=== PATIENT | male | born 1965 | race Caucasian/White ===

== ENCOUNTER 2022-10-15 09:47 | Inpatient (IN) | payer OTHER ==
[2022-10-15] MEDS ORDERED: MAG HYDROX/AL HYDROX/SIMETH 30 ML UNIT-DOSE CUP PO PRN (10:13)
[2022-10-15] MEDS ORDERED: ONDANSETRON *ODT* 4 MG TABLET SL PRN (10:13)
[2022-10-15] MEDS ORDERED: POLYETHYLENE GLYCOL (HEALTHYLAX) 3350 17 GM PACKET PO PRN (10:13)
[2022-10-15] MEDS ORDERED: MAGNESIUM HYDROX 2400MG/30ML ORAL SUSPENSION 30 ML CUP PO PRN (10:13)
[2022-10-15] MEDS ORDERED: BENZONATATE 200 MG CAPSULE PO PRN (10:13)
[2022-10-15] MEDS ORDERED: DICYCLOMINE HCL 10 MG CAPSULE PO PRN (10:13)
[2022-10-15] MEDS ORDERED: ACETAMINOPHEN 325 MG TABLET (FP) PO PRN (10:13)
[2022-10-15] MEDS ORDERED: BENZOCAINE/MENTHOL (CHLORASEPTIC ) LOZENGE MM PRN (10:13)
[2022-10-15] MEDS ORDERED: NICOTINE 21 MG/24 HOURS TOPICAL PATCH TD PRN (10:13)
[2022-10-15] MEDS ORDERED: NALOXONE HCL (KLOXXADO) 8 MG SPRAY NS PRN (10:13)
[2022-10-15] MEDS ORDERED: guaiFENesin 600 MG TABLET.ER (FP) PO PRN (10:13)
[2022-10-15] MEDS ORDERED: IBUPROFEN 400 MG TABLET (FP) PO PRN (10:13)
[2022-10-15] MEDS ORDERED: LOPERAMIDE HCL 2 MG CAPSULE PO PRN (10:13)
[2022-10-15] MEDS ORDERED: NICOTINE POLACRILEX 4 MG GUM BUC PRN (10:13)
[2022-10-15] MEDS ORDERED: BISMUTH SUBSALICYLATE 262 MG/15 ML BTL PO PRN (10:13)
[2022-10-15] MEDS ORDERED: NALOXONE HCL 0.4 MG/ML VIAL IM PRN (10:13)
[2022-10-15 10:59] VITALS: BMI 25.8
[2022-10-15] MEDS ORDERED: methaDONE HCL 10 MG TABLET (FOR DETOX USE ONLY) PO ONE (11:30)
[2022-10-15] MEDS: cloNIDine HCL 0.1 MG TABLET PO PRN ×2 (12:07→21:47)
[2022-10-15 14:13] LABS: HEMATOCRIT 41.8 % (35.4-49); HEMOGLOBIN 13.9 GM/dL (11.7-16.9); MCH 29.3 pg (25.7-33.7); MCHC 33.3 g/dl (32.0-35.9); MEAN CELL VOLUME 87.9 fl (80-96); MEAN PLT VOLUME 7.3 fl (7.5-11.1); PLATELET COUNT 347 10^3/uL (134-434); RBC 4.76 M/mm3 (4.00-5.60); RDW 12.9 % (11.9-15.9); WHITE BLOOD COUNT 7.6 K/mm3 (4.0-10.0)
[2022-10-15 14:36] LABS: ALBUMIN 3.7 g/dl (3.4-5.0)
[2022-10-15 14:37] LABS: BLOOD UREA NITROGEN 17.9 mg/dL (7-18)
[2022-10-15 14:39] LABS: CREATININE 1.1 mg/dL (0.55-1.3)
[2022-10-15 14:44] LABS: BILIRUBIN,TOTAL 0.8 mg/dL (0.2-1)
[2022-10-15] MEDS: THIAMINE HCL 100 MG TABLET (FP) PO SCH (21:47)
[2022-10-15] MEDS: METHOCARBAMOL 500 MG TABLET PO PRN (21:47)
[2022-10-15] MEDS: hydrOXYzine PAMOATE 25 MG CAPSULE (FP) PO PRN (21:47)
[2022-10-15] MEDS: MELATONIN 5 MG TABLETS PO SCH (21:47)
[2022-10-15] MEDS: IBUPROFEN 600 MG TABLET (FP) PO PRN (21:47)
[2022-10-16] MEDS: cloNIDine HCL 0.1 MG TABLET PO PRN ×2 (07:12→22:18)
[2022-10-16] MEDS: hydrOXYzine PAMOATE 25 MG CAPSULE (FP) PO PRN ×2 (07:12→22:19)
[2022-10-16] MEDS: METHOCARBAMOL 500 MG TABLET PO PRN ×2 (07:12→22:18)
[2022-10-16] MEDS ORDERED: amLODIPine BESYLATE 10 MG TABLET (FP) PO ONE (09:39)
[2022-10-16] MEDS: PRENATAL VITAMINS W/ FOLIC ACID TABLET (FP) PO SCH (10:28)
[2022-10-16] MEDS: THIAMINE HCL 100 MG TABLET (FP) PO SCH (22:18)
[2022-10-16] MEDS: IBUPROFEN 600 MG TABLET (FP) PO PRN (22:18)
[2022-10-16] MEDS: MELATONIN 5 MG TABLETS PO SCH (22:18)
[2022-10-17] MEDS: METHOCARBAMOL 500 MG TABLET PO PRN ×2 (09:56→20:21)
[2022-10-17] MEDS: hydrOXYzine PAMOATE 25 MG CAPSULE (FP) PO PRN ×2 (09:56→20:21)
[2022-10-17] MEDS: PRENATAL VITAMINS W/ FOLIC ACID TABLET (FP) PO SCH (09:56)
[2022-10-17] MEDS ORDERED: methaDONE HCL 10 MG TABLET (FOR DETOX USE ONLY) PO ONE (10:00)
[2022-10-17] MEDS: NICOTINE 10 MG CARTRIDGE (INHALER) IH PRN (16:24)
[2022-10-17] MEDS: diazePAM 5 MG TABLET PO PRN (20:19)
[2022-10-17] MEDS: MELATONIN 5 MG TABLETS PO SCH (21:58)
[2022-10-17] MEDS: THIAMINE HCL 100 MG TABLET (FP) PO SCH (21:59)
[2022-10-18] MEDS: PRENATAL VITAMINS W/ FOLIC ACID TABLET (FP) PO SCH (10:30)
[2022-10-18] MEDS: NICOTINE 10 MG CARTRIDGE (INHALER) IH PRN (14:27)
[2022-10-18] MEDS: diazePAM 5 MG TABLET PO PRN (17:52)
[2022-10-18] MEDS: IBUPROFEN 600 MG TABLET (FP) PO PRN (22:48)
[2022-10-18] MEDS: THIAMINE HCL 100 MG TABLET (FP) PO SCH (22:48)
[2022-10-18] MEDS: MELATONIN 5 MG TABLETS PO SCH (22:48)
[2022-10-19] MEDS: diazePAM 5 MG TABLET PO PRN ×2 (09:05→22:47)
[2022-10-19] MEDS: PRENATAL VITAMINS W/ FOLIC ACID TABLET (FP) PO SCH (09:06)
[2022-10-19] MEDS: METHOCARBAMOL 500 MG TABLET PO PRN (09:06)
[2022-10-19] MEDS ORDERED: methaDONE HCL 10 MG TABLET (FOR DETOX USE ONLY) PO ONE (10:00)
[2022-10-19] MEDS: MELATONIN 5 MG TABLETS PO SCH (22:43)
[2022-10-19] MEDS: THIAMINE HCL 100 MG TABLET (FP) PO SCH (22:44)
[2022-10-19] MEDS: IBUPROFEN 600 MG TABLET (FP) PO PRN (22:46)
[2022-10-19] MEDS: hydrOXYzine PAMOATE 25 MG CAPSULE (FP) PO PRN (22:47)
[2022-10-20 09:25] VITALS: BP 111/68; PULSE 78; RESP 20; TEMP 98.6
[2022-10-20] MEDS: PRENATAL VITAMINS W/ FOLIC ACID TABLET (FP) PO SCH (10:44)
== END 2022-10-20 10:38 | disposition home or self-care (01) | DRG 773 ==
LOC: YASAS 09:47 → Y3N 11:08
PROVIDERS: ADMIT Allergy & Immunology; ATTEND Surgery
PROC: HZ2ZZZZ Detoxification Services for Substance Abuse Treatment (ICD-10-PCS; principal; 2022-10-15)
DX: F11.23 Opioid dependence with withdrawal (principal); F17.210 Nicotine dependence, cigarettes, uncomplicated; I10 Essential (primary) hypertension; F41.9 Anxiety disorder, unspecified; Z86.19 Personal history of other infectious and parasitic diseases; Z56.0 Unemployment, unspecified; Z59.00 Homelessness unspecified
CPT/HCPCS: 36415; 80053; 85027; 86780; 93005; 93010; C9803-CS; Q0162; U0003; U0005

== ENCOUNTER 2022-12-31 10:58 | Inpatient (IN) | payer OTHER ==
[2022-12-31 11:44] VITALS: BMI 28.0
[2022-12-31] MEDS ORDERED: IBUPROFEN 400 MG TABLET (FP) PO PRN (13:07)
[2022-12-31] MEDS ORDERED: guaiFENesin 600 MG TABLET.ER (FP) PO PRN (13:07)
[2022-12-31] MEDS ORDERED: MAGNESIUM HYDROX 2400MG/30ML ORAL SUSPENSION 30 ML CUP PO PRN (13:07)
[2022-12-31] MEDS ORDERED: NALOXONE HCL (KLOXXADO) 8 MG SPRAY NS PRN (13:07)
[2022-12-31] MEDS ORDERED: BUPRENORPHINE HCL 150 MCG, BUPRENORPHINE HCL 75 MCG BC ONE (13:07)
[2022-12-31] MEDS ORDERED: BENZOCAINE/MENTHOL (CHLORASEPTIC ) LOZENGE MM PRN (13:07)
[2022-12-31] MEDS ORDERED: ONDANSETRON *ODT* 4 MG TABLET SL PRN (13:07)
[2022-12-31] MEDS ORDERED: POLYETHYLENE GLYCOL (HEALTHYLAX) 3350 17 GM PACKET PO PRN (13:07)
[2022-12-31] MEDS ORDERED: MAG HYDROX/AL HYDROX/SIMETH 30 ML UNIT-DOSE CUP PO PRN (13:07)
[2022-12-31] MEDS ORDERED: BUPRENORPHINE HCL 150 MCG, BUPRENORPHINE HCL 75 MCG BC PRN (13:07)
[2022-12-31] MEDS ORDERED: NICOTINE 10 MG CARTRIDGE (INHALER) IH PRN (13:07)
[2022-12-31] MEDS ORDERED: ACETAMINOPHEN 325 MG TABLET (FP) PO PRN (13:07)
[2022-12-31] MEDS ORDERED: BENZONATATE 200 MG CAPSULE PO PRN (13:07)
[2022-12-31] MEDS ORDERED: DICYCLOMINE HCL 10 MG CAPSULE PO PRN (13:07)
[2022-12-31] MEDS ORDERED: NALOXONE HCL 0.4 MG/ML VIAL IM PRN (13:07)
[2022-12-31] MEDS ORDERED: LOPERAMIDE HCL 2 MG CAPSULE PO PRN (13:07)
[2022-12-31] MEDS ORDERED: cloNIDine HCL 0.1 MG TABLET PO ONE (13:07)
[2022-12-31] MEDS ORDERED: BISMUTH SUBSALICYLATE 262 MG/15 ML BTL PO PRN (13:07)
[2022-12-31] MEDS ORDERED: IBUPROFEN 600 MG TABLET (FP) PO PRN (13:07)
[2022-12-31] MEDS ORDERED: BUPRENORPHINE HCL 150 MCG FILM BC ONE (13:23)
[2022-12-31] MEDS ORDERED: NICOTINE 21 MG/24 HOURS TOPICAL PATCH ONE (13:23)
[2022-12-31] MEDS ORDERED: BUPRENORPHINE HCL 75 MCG FILM BC ONE (13:24)
[2022-12-31] MEDS ORDERED: cloNIDine HCL 0.1 MG TABLET ONE (13:24)
[2022-12-31] MEDS ORDERED: PRENATAL VITAMINS W/ FOLIC ACID TABLET (FP) PO ONE (13:25)
[2022-12-31] MEDS: NICOTINE 21 MG/24 HOURS TOPICAL PATCH TD SCH (13:45)
[2022-12-31] MEDS: PRENATAL VITAMINS W/ FOLIC ACID TABLET (FP) PO SCH (13:45)
[2022-12-31 17:05] LABS: POTASSIUM 5.1 mmol/L (3.5-5.1)
[2022-12-31 17:06] LABS: HEMATOCRIT 39.9 % (35.4-49); HEMOGLOBIN 12.9 GM/dL (11.7-16.9); MCH 28.5 pg (25.7-33.7); MCHC 32.2 g/dl (32.0-35.9); MEAN CELL VOLUME 88.4 fl (80-96); MEAN PLT VOLUME 7.5 fl (7.5-11.1); PLATELET COUNT 363 10^3/uL (134-434); RBC 4.51 M/mm3 (4.00-5.60); RDW 13.7 % (11.9-15.9); WHITE BLOOD COUNT 7.2 K/mm3 (4.0-10.0)
[2022-12-31 17:07] LABS: CALCIUM 9.1 mg/dL (8.5-10.1)
[2022-12-31 17:08] LABS: ALBUMIN 3.7 g/dl (3.4-5.0)
[2022-12-31 17:13] LABS: BILIRUBIN,TOTAL 1.1 mg/dL (0.2-1); TOT PROT 7.3 g/dl (6.4-8.2)
[2022-12-31] MEDS: MELATONIN 5 MG TABLETS PO SCH (22:24)
[2022-12-31] MEDS: THIAMINE HCL 100 MG TABLET (FP) PO SCH (22:24)
[2022-12-31] MEDS: diazePAM 5 MG TABLET PO PRN (22:25)
[2023-01-01] MEDS ORDERED: BUPRENORPHINE HCL 150 MCG, BUPRENORPHINE HCL 75 MCG BC PRN
[2023-01-01] MEDS: BUPRENORPHINE HCL 150 MCG, BUPRENORPHINE HCL 75 MCG BC SCH ×2 (05:31→18:04)
[2023-01-01] MEDS: NICOTINE 21 MG/24 HOURS TOPICAL PATCH TD SCH (10:16)
[2023-01-01] MEDS: PRENATAL VITAMINS W/ FOLIC ACID TABLET (FP) PO SCH (10:16)
[2023-01-01] MEDS: METHOCARBAMOL 500 MG TABLET PO PRN ×2 (10:17→22:28)
[2023-01-01] MEDS: diazePAM 5 MG TABLET PO PRN ×2 (10:17→22:28)
[2023-01-01] MEDS: cloNIDine HCL 0.1 MG TABLET PO PRN ×2 (18:04→22:28)
[2023-01-01] MEDS: hydrOXYzine PAMOATE 25 MG CAPSULE (FP) PO PRN (18:05)
[2023-01-01] MEDS: MELATONIN 5 MG TABLETS PO SCH (22:28)
[2023-01-01] MEDS: THIAMINE HCL 100 MG TABLET (FP) PO SCH (22:28)
[2023-01-02] MEDS: BUPRENORPHINE HCL 450 MCG FILM BC SCH ×2 (05:30→17:43)
[2023-01-02] MEDS: NICOTINE 21 MG/24 HOURS TOPICAL PATCH TD SCH (10:27)
[2023-01-02] MEDS: PRENATAL VITAMINS W/ FOLIC ACID TABLET (FP) PO SCH (10:27)
[2023-01-02] MEDS: diazePAM 5 MG TABLET PO PRN (10:28)
[2023-01-02] MEDS: cloNIDine HCL 0.1 MG TABLET PO PRN ×2 (17:43→22:24)
[2023-01-02] MEDS: METHOCARBAMOL 500 MG TABLET PO PRN (22:24)
[2023-01-02] MEDS: hydrOXYzine PAMOATE 25 MG CAPSULE (FP) PO PRN (22:24)
[2023-01-02] MEDS: MELATONIN 5 MG TABLETS PO SCH (22:24)
[2023-01-02] MEDS: THIAMINE HCL 100 MG TABLET (FP) PO SCH (22:24)
[2023-01-03] MEDS: BUPRENORPHINE/NALOXONE 4 MG/1 MG FILM PACKET SL SCH ×2 (05:25→18:04)
[2023-01-03] MEDS: cloNIDine HCL 0.1 MG TABLET PO PRN (05:27)
[2023-01-03] MEDS: METHOCARBAMOL 500 MG TABLET PO PRN (05:28)
[2023-01-03] MEDS: PRENATAL VITAMINS W/ FOLIC ACID TABLET (FP) PO SCH (10:09)
[2023-01-03] MEDS: hydrOXYzine PAMOATE 25 MG CAPSULE (FP) PO PRN (10:09)
[2023-01-03] MEDS: NICOTINE 21 MG/24 HOURS TOPICAL PATCH TD SCH (10:09)
[2023-01-03] MEDS ORDERED: diazePAM 5 MG TABLET PO PRN (12:35)
[2023-01-03] MEDS: THIAMINE HCL 100 MG TABLET (FP) PO SCH (21:49)
[2023-01-03] MEDS: MELATONIN 5 MG TABLETS PO SCH (21:49)
[2023-01-04] MEDS ORDERED: BUPRENORPHINE/NALOXONE 8 MG/2 MG FILM PACKET SL ONE (06:00)
[2023-01-04] MEDS ORDERED: diazePAM 5 MG TABLET PO PRN (09:25)
[2023-01-04 10:00] VITALS: BP 142/96; PULSE 80; RESP 18; TEMP 97.3
[2023-01-04] MEDS: NICOTINE 21 MG/24 HOURS TOPICAL PATCH TD SCH (10:16)
[2023-01-04] MEDS: PRENATAL VITAMINS W/ FOLIC ACID TABLET (FP) PO SCH (10:16)
== END 2023-01-04 10:22 | disposition home or self-care (01) | DRG 773 ==
LOC: YASAS 10:58 → Y3N 13:31
PROVIDERS: ADMIT Allergy & Immunology; ATTEND Surgery
PROC: HZ2ZZZZ Detoxification Services for Substance Abuse Treatment (ICD-10-PCS; principal; 2022-12-31)
DX: F11.23 Opioid dependence with withdrawal (principal); F10.10 Alcohol abuse, uncomplicated; F14.10 Cocaine abuse, uncomplicated; F17.210 Nicotine dependence, cigarettes, uncomplicated; F41.9 Anxiety disorder, unspecified; G62.9 Polyneuropathy, unspecified; I10 Essential (primary) hypertension; Z86.59 Personal history of other mental and behavioral disorders; Z86.19 Personal history of other infectious and parasitic diseases; Z59.01 Sheltered homelessness; Z56.0 Unemployment, unspecified
CPT/HCPCS: 36415; 80053; 85027; 86780; 87635; 87811

== ENCOUNTER 2023-10-24 12:45 | Inpatient (IN) | payer OTHER ==
[2023-10-24 13:28] VITALS: BMI 25.7
[2023-10-24] MEDS ORDERED: MAG HYDROX/AL HYDROX/SIMETH 30 ML UNIT-DOSE CUP PO PRN (14:36)
[2023-10-24] MEDS ORDERED: BENZOCAINE/MENTHOL (CHLORASEPTIC ) LOZENGE MM PRN (14:36)
[2023-10-24] MEDS ORDERED: ACETAMINOPHEN 325 MG TABLET (FP) PO PRN (14:36)
[2023-10-24] MEDS ORDERED: guaiFENesin 600 MG TABLET.ER (FP) PO PRN (14:36)
[2023-10-24] MEDS ORDERED: NALOXONE HCL 0.4 MG/ML VIAL IM PRN (14:36)
[2023-10-24] MEDS ORDERED: MAGNESIUM HYDROX 2400MG/30ML ORAL SUSPENSION 30 ML CUP PO PRN (14:36)
[2023-10-24] MEDS ORDERED: LOPERAMIDE HCL 2 MG CAPSULE PO PRN (14:36)
[2023-10-24] MEDS ORDERED: BISMUTH SUBSALICYLATE 524 MG/30 ML PO PRN (14:36)
[2023-10-24] MEDS ORDERED: POLYETHYLENE GLYCOL (HEALTHYLAX) 3350 17 GM PACKET PO PRN (14:36)
[2023-10-24] MEDS ORDERED: DICYCLOMINE HCL 10 MG CAPSULE PO PRN (14:36)
[2023-10-24] MEDS ORDERED: ONDANSETRON *ODT* 4 MG TABLET SL PRN (14:36)
[2023-10-24] MEDS ORDERED: NICOTINE 21 MG/24 HOURS TOPICAL PATCH TD PRN (14:36)
[2023-10-24] MEDS ORDERED: NALOXONE HCL (KLOXXADO) 8 MG SPRAY NS PRN (14:36)
[2023-10-24] MEDS ORDERED: IBUPROFEN 400 MG TABLET (FP) PO PRN (14:36)
[2023-10-24] MEDS ORDERED: methaDONE HCL 10 MG TABLET (FOR DETOX USE ONLY) ONE (15:34)
[2023-10-24] MEDS: methaDONE HCL 10 MG TABLET (FOR DETOX USE ONLY) PO ONE (15:36)
[2023-10-24] MEDS: IBUPROFEN 600 MG TABLET (FP) PO PRN (15:56)
[2023-10-24] MEDS: METHOCARBAMOL 500 MG TABLET PO PRN (15:56)
[2023-10-24] MEDS: diazePAM 5 MG TABLET PO SCH (17:21)
[2023-10-24] MEDS: NICOTINE POLACRILEX 4 MG LOZENGE BC PRN (18:36)
[2023-10-24] MEDS: THIAMINE HCL 100 MG TABLET (FP) PO SCH (22:45)
[2023-10-24] MEDS: MELATONIN 5 MG TABLETS PO SCH (22:45)
[2023-10-25] MEDS: PRENATAL VITAMINS W/ FOLIC ACID TABLET (FP) PO SCH (10:25)
[2023-10-25 10:35] LABS: HEMATOCRIT 37.4 % (35.4-49); HEMOGLOBIN 12.2 GM/dL (11.7-16.9); MCH 29.2 pg (25.7-33.7); MCHC 32.5 g/dl (32.0-35.9); MEAN CELL VOLUME 89.9 fl (80-96); MEAN PLT VOLUME 7.4 fl (7.5-11.1); PLATELET COUNT 344 10^3/uL (134-434); RBC 4.17 M/mm3 (4.00-5.60); RDW 13.4 % (11.9-15.9); WHITE BLOOD COUNT 8.2 K/mm3 (4.0-10.0)
[2023-10-25 10:42] LABS: CHLORIDE 103 mmol/L (98-107); POTASSIUM 4.3 mmol/L (3.5-5.1); SODIUM 137 mmol/L (136-145)
[2023-10-25 10:49] LABS: ALBUMIN 2.9 g/dl (3.4-5.0); ANION GAP 5 mmol/L (4-13); BLOOD UREA NITROGEN 19.8 mg/dL (7-18); CALCIUM 8.2 mg/dL (8.5-10.1); CO2 29 mmol/L (21-32); GLUCOSE,RANDOM 101 mg/dL (74-106)
[2023-10-25 10:52] LABS: CREATININE 0.8 mg/dL (0.55-1.3); SGPT/ALT 31 U/L (13-61)
[2023-10-25 10:53] LABS: SGOT/AST 34 U/L (15-37)
[2023-10-25 10:54] LABS: BILIRUBIN,TOTAL 0.6 mg/dL (0.2-1)
[2023-10-25 10:55] LABS: ALK PHOS 98 U/L (45-117)
[2023-10-25] MEDS: LACTULOSE 20 GM/30 ML UDC (FOR ORAL USE ONLY) PO SCH (14:22)
[2023-10-25] MEDS: SUVOREXANT 10 MG TABLET PO PRN (22:40)
[2023-10-26] MEDS: diazePAM 5 MG TABLET PO SCH (05:23)
[2023-10-26] MEDS: cloNIDine HCL 0.1 MG TABLET PO PRN (09:36)
[2023-10-26] MEDS: methaDONE HCL 10 MG TABLET (FOR DETOX USE ONLY) PO ONE (09:37)
[2023-10-26] MEDS: NICOTINE POLACRILEX 4 MG GUM BUC PRN (13:42)
[2023-10-26] MEDS: amLODIPine BESYLATE 5 MG TABLET (FP) PO SCH (14:51)
[2023-10-26] MEDS: BENZONATATE 200 MG CAPSULE PO PRN (18:56)
[2023-10-26] MEDS: diazePAM 5 MG TABLET PO PRN (18:56)
[2023-10-27] MEDS: diazePAM 5 MG TABLET PO SCH (06:08)
[2023-10-27] MEDS: methaDONE HCL 10 MG TABLET PO ONE (16:30)
[2023-10-28] MEDS: diazePAM 5 MG TABLET PO ONE (06:22)
[2023-10-28] MEDS: methaDONE HCL 10 MG TABLET PO ONE (09:43)
[2023-10-28] MEDS: amLODIPine BESYLATE 10 MG TABLET (FP) PO SCH (09:43)
[2023-10-28] MEDS ORDERED: methaDONE HCL 10 MG TABLET (FOR DETOX USE ONLY) PO ONE (10:00)
[2023-10-28] MEDS: SUVOREXANT 10 MG TABLET PO PRN (22:24)
[2023-10-29] MEDS: methaDONE 40 MG, methaDONE 20 MG PO ONE (06:28)
[2023-10-29] MEDS: LOSARTAN POTASSIUM 25 MG TABLET PO SCH (09:24)
[2023-10-29 11:00] VITALS: BP 139/87; PULSE 78; RESP 18; TEMP 97.8
== END 2023-10-29 10:21 | disposition home or self-care (01) | DRG 773 ==
LOC: YASAS 12:45 → Y6N 15:18
PROVIDERS: ADMIT Allergy & Immunology; ATTEND Surgery
PROC: HZ2ZZZZ Detoxification Services for Substance Abuse Treatment (ICD-10-PCS; principal; 2023-10-24)
DX: F11.23 Opioid dependence with withdrawal (principal); F10.230 Alcohol dependence with withdrawal, uncomplicated; F14.20 Cocaine dependence, uncomplicated; F12.20 Cannabis dependence, uncomplicated; F17.210 Nicotine dependence, cigarettes, uncomplicated; F19.282 Other psychoactive substance dependence with psychoactive substance-induced sleep disorder; F19.24 Other psychoactive substance dependence with psychoactive substance-induced mood disorder; R79.89 Other specified abnormal findings of blood chemistry; Z86.19 Personal history of other infectious and parasitic diseases; Z59.00 Homelessness unspecified; Z56.0 Unemployment, unspecified
CPT/HCPCS: 36415; 80053; 80307; 82140; 85027; 86780; 93005; 93010